=== PATIENT | female | born 1945 | race Caucasian/White ===

== ENCOUNTER → 2016-11-24 | Outpatient (CLI) | payer OTHER ==
[~2016-11-24] MED LIST: ACETAMINOPHEN PO; ACETAMINOPHEN500 M3 PO; ACTOS PO; ALLERGY RELIEF10 MG PO; ALTOPREV40 MG PO; AMLODIPINE BESYL5 MG PO; ASPIRIN PO; ASPIRIN81 M1 PO; ASPIRIN81 M2 PO; BETAPACE PO; BETAPACE80 MG PO; BYDUREON2 MG SQ; CARDIZEM PO; CARDIZEM SR PO; CARDIZEM60 MG PO; COREG CR PO; COREG PO; COUMADIN PO; COUMADIN2.5 MG PO; COUMADIN5 MG PO; CRESTOR PO; DICYCLOMINE HCL20 MG PO; EFFIENT10 MG PO; GLUCOVANCE 5/501 TA1 PO; GLUCOVANCE 5/501 TA3 PO; GLUCOVANCE PO; GLYBURIDE-METFO1 TA3 PO; HUMULIN R500 UNIT/1; JANUVIA50 MG PO; LANTUS100 U/ML; LANTUS100 U/ML SUBQ; LANTUS100 UNITS/ SUBQ; LISINOPRIL PO; LISINOPRIL20 MG PO; LOVASTATIN20 M2 PO; LOVENOX SUBQ; MACRODANTIN PO; METFORMIN HCL500 M1 PO; METOPROLOL SUCC25 MG PO; METOPROLOL TAR25 MG PO; MOTION SICKNESS25 M4 PO; NABUMETONE PO; NITROGLYCERIN0.4 MG SL; NITROGLYGERIN0.4 MG SL; NOVOLOG100 U/ML SUBQ; OMEPRAZOLE40 M1 PO; PATIENT'S PHARMACY; PHYSICIAN; PRILOSEC PO; PRILOSEC20 MG PO; PRILOSEC40 MG PO; PROTONIX PO; ULTRAM PO; VICODIN PO; ZOCOR PO
--- NOTE | ~2016-11-24 | CR7 ---
[facility] A Service of [facility] RADIOLOGY TEXT RESULTS PATIENT: KANA WATLERS LOCATION: [facility] : 43 UNIT #: [id number] AGE: [address]: Kamar Zapata MD SEX: F ORDER DR: [id number] [facility] [address] [place], [place] [address] [id number] O MR#: [id number] Acc #: [id number] NAME: KANA WALTERS. : 1945 SEX: F STUDY DATE/TIME: 11/24/2016 10:42 UNIT: [facility] ROOM: STUDY DESCRIPTION: CR Abdomen Single AP View Attending Physician: Kamar Zapata M.D. Referring Physician: Kamar Zapata M.D. Ordering Physician: Kamar Zapata M.D. Primary Care Physician: Barbara Rico M.D. MEDICAL IMAGING REPORT This report is preliminary unless electronic signature is present EXAM AP abdomen 11/24/2016 HISTORY Right-side abdominal pain for 3 years. Lithotripsy procedure 2 weeks ago. History of right side kidney stones. Previous appendectomy. COMPARISON AP abdomen 11/25/2015. FINDINGS 5-6 mm radiopacity projects over the right lower renal pole may represent nonobstructing right renal stone. Of note, most of the right kidney and most of the left upper renal pole obscured by fecal material within the overlying colon. No definite ureteral calculus is seen. Couple of small calcified phleboliths in the right hemipelvis appear unchanged from the prior exam. Multilevel degenerative osteophyte formation is present in the imaged thoracolumbar spine. IMPRESSION 1. Suspected 5-6 mm stone in the right lower renal pole. 2. No ureteral calculus is seen. Dictated by... Sana Sandra M.D. THIS IS AN ELECTRONICALLY VERIFIED REPORT Sana Sandra M.D. at 11/25/2016 6:[address] [facility]/luz [facility] A Service of [facility] RADIOLOGY TEXT RESULTS PATIENT: KANA WALTERS [id number] 43 UNIT #: [id number] AGE: [address]: Kamar Zapata MD SEX: F ORDER DR: TD: 11/24/2016 17:29 JOB #: [id number] MEDICAL IMAGING REPORT Page 1 of 1 COPY
== END | disposition home or self-care (01) ==
LOC: CRAD 10:12
DX: N20.0 Calculus of kidney (principal)
CPT/HCPCS: 74000

== ENCOUNTER → 2017-02-28 | Outpatient (CLI) | payer OTHER ==
--- NOTE | ~2017-02-28 | BD1 ---
[facility] A Service of [facility] RADIOLOGY TEXT RESULTS PATIENT: KNAA WALTERS LOCATION: [facility] : 43 UNIT #: [id number] AGE: [address]: Barbara Rico MD SEX: F ORDER DR: [id number] [address] [address] [id number] O MR#: [id number] Acc #: [id number] NAME: KANA WALTERS : 1945 SEX: F STUDY DATE/TIME: 02/28/2017 8:11 UNIT: [facility] ROOM: STUDY DESCRIPTION: Dexa Bone Dens 1+ Site Attending Physician: Barbara Rico M.D. Referring Physician: Barbara Rico M.D. Ordering Physician: Barbara Rico M.D. Primary Care Physician: Barbara Rico M.D. MEDICAL IMAGING REPORT This report is preliminary unless electronic signature is present. EXAM Dexa scan HISTORY Follow up osteopenia. COMPARISON Dexa scan 08/29/2013 and 08/15/2008 FINDINGS Bone density was assessed utilizing a [employer] bone densitometer. Total bone dense in the lumbar spine was calculated 1.048 g per cm squared with a T-score -1.1. Bone density in the left femoral neck was calculated at 0.853 g per cm squared with a T-score -1.3. The total bone density in the right femoral neck was calculated at 0.779 g per cm squared with a T-score -1.9. When compared to the patient's 2013 study there has been about a 4% decrease in total bone density within the right femoral neck but a 11% improvement in bone density within the lumbar spine. IMPRESSION Bone density within the lumbar spine and femoral necks is between 1-2.5 standard deviations below the mean and compatible with World Health Organization criteria for osteopenia. Relative to the 2013 study there has been about 11% improvement and total bone density in the lumbar spine but about 4% decrease in total bone dense the proximal right femur. Dictated by... Jean Cisse M.D. THIS IS AN ELECTRONICALLY VERIFIED REPORT Jean Cisse M.D. at 03/01/2017 4:46 PM [facility] A Service of [facility] & [facility] RADIOLOGY TEXT RESULTS PATIENT: KANA WALTERS LOCATION: [facility] : 43 UNIT #: [id number] AGE: [address]: Barbara Rico MD SEX: F ORDER DR: Hema TD: 02/28/2017 16:04 JOB #: [id number] MEDICAL IMAGING REPORT Page 1 of 1
== END | disposition home or self-care (01) ==
LOC: SRAD 07:55
DX: M85.80 Other specified disorders of bone density and structure, unspecified site (principal); M85.88 Other specified disorders of bone density and structure, other site
CPT/HCPCS: 77080